=== PATIENT | female | born 1990 | race Caucasian/White ===

== ENCOUNTER → 2016-06-07 | Outpatient (CLI) | payer BC, OTHER ==
--- NOTE | 2016-06-07 16:39 | CT ---
EXAMINATION TYPE: CT sinus wo con DATE OF EXAM: 06/07/2016 4:28 PM COMPARISON: NONE HISTORY: HEADACHES AND DYSPHAGIA CT DLP: 673.7 mGycm CONTRAST: None The paranasal sinuses are examined in the axial plane at 2 mm thick sections. Reconstructed images i n the coronal plane were obtained. There is dental amalgam scatter artifact. The maxillary sinuses are clear. The ethmoid air cells are clear. The sphenoid sinuses are clear. The frontal sinuses are clear. The septum is evaluated. There is septal deviation to the right. Septal spur directed towards the ri ght is evident.. The ostiomeatal units are patent. There appear to be Anabel air cells present IMPRESSIONS: 1. Normal paranasal sinus study. 2. Right septal deviation.
--- NOTE | 2016-06-07 16:41 | CT ---
EXAMINATION TYPE: CT soft tissue neck w con DATE OF EXAM: 06/07/2016 4:29 PM COMPARISON: NONE HISTORY: HEADACHES AND DYSPHAGIA CT DLP: 266.10 mGycm CONTRAST: Patient injected with 100 mL of Omnipaque 300. TECHNIQUE: Axial images at 3 mm thick sections. Reconstructed images in the coronal plane and sagitt al plane are reviewed. FINDINGS: Limited CT sections are obtained the lung apices. The lung apices appear clear. Note is ma de of an azygos fissure, normal variant. CT neck: The torus tubarius and fossa of Rosenmuller are normal. Networking Technician spaces are normal. Para nasal sinuses and mastoid air cells are clear. Parotid glands appear normal and symmetrical. Submandibular glands, are normal. Parapharyngeal spac es are normal. No suspicious adenopathy is evident. The hypopharynx appears within normal limits. Vocal cord level appear symmetrical. Thyroid as visualized is normal. Osseous structures are normal. IMPRESSIONS: 1. Normal soft tissue neck.
== END | disposition home or self-care (01) ==
LOC: RADCTMAIN 16:01
PROVIDERS: ATTEND Otolaryngology
DX: J34.2 Deviated nasal septum (principal); R22.1 Localized swelling, mass and lump, neck
CPT/HCPCS: 70491; 70486; Q9967

== ENCOUNTER → 2016-06-08 | Outpatient (CLI) | payer BC, OTHER ==
--- NOTE | 2016-06-08 11:38 | FL ---
EXAMINATION TYPE: FL barium swallow w video DATE OF EXAM ORDERED: 06/08/2016 11:32 AM HISTORY: Globus sensation. COMPARISON: None. FINDINGS: The patient handled all foodstuffs with ease. There is no evidence of aspiration or penetr ation. There was no delay in swallowing. There is no residual. IMPRESSION: NORMAL MODIFIED BARIUM SWALLOW.
== END | disposition home or self-care (01) ==
LOC: RADFLMAIN 10:56
PROVIDERS: ATTEND Otolaryngology
DX: K21.9 Gastro-esophageal reflux disease without esophagitis (principal)
CPT/HCPCS: 74230

== ENCOUNTER 2016-12-26 09:46 | Emergency (ER) | payer BC, OTHER ==
[2016-12-26 10:40] LABS: Appearance,Urine Clear (Clear); Bilirubin,Urine Negative (Negative); Glucose,Urine (UA) Negative (Negative); Ketones,Urine Negative (Negative); Leukocyte Esterase,Urine Negative (Negative); Nitrite,Urine Negative (Negative); PH, Urine 5.5 (5.0-8.0); Protein,Urine Negative (Negative); Specific Gravity,Urine 1.014 (1.001-1.035); UA Billing (MACRO vs. MICRO) CHEM; Urobilinogen,Urine <2.0 mg/dL (<2.0)
[2016-12-26] MEDS ORDERED: RX INFO: IV CONTRAST WAS GIVEN 1 EACH MISC MISCELLANE PRN (10:44)
[2016-12-26] MEDS ORDERED: SODIUM CHLORIDE 0.9% 1,000 ML IV STA (10:44)
[2016-12-26] MEDS ORDERED: ACETAMINOPHEN IV (For NPO) 1,000 MG in EMPTY BAG 1 BAG IVPB STA (10:44)
[2016-12-26] MEDS ORDERED: ONDANSETRON 4 MG/2 ML VIAL IVP STA (10:44)
[2016-12-26] MEDS ORDERED: HYDROmorphone 1 MG/ML 1 ML SYRINGE IVP STA (10:44)
--- NOTE | 2016-12-26 10:57 | ED ---
General Adult HPI - General Chief complaint: Abdominal Pain Stated complaint: stomach/back pain/fever Time Seen by Provider: 12/26/16 10:27 Source: patient, RN notes reviewed, old records reviewed Mode of arrival: ambulatory Limitations: no limitations - History of Present Illness Initial comments: This is a 26-year-old female the ER for evaluation. Patient presents here today for evaluation regarding abdominal pain. Fever. Nausea. No appetite. Bowel movement yesterday no problem with urination although she states increased frequency. No chance of . Patient is right lower quadrant bowel pain with fever. Patient's R last night with progressive worsening. - Related Data Home Medications Medication Instructions Recorded Confirmed No Known Home Medications [No 12/26/16 12/26/16 Known Home Medications] Allergies Allergy/AdvReac Type Severity Reaction Status Date / Time coconut oil Allergy Anaphylaxis Verified 12/26/16 10:06 naproxen sodium Allergy Anaphylaxis Verified 12/26/16 10:06 [From Treximet] sumatriptan [From Imitrex] Allergy Anaphylaxis Verified 12/26/16 10:06 sumatriptan succinate Allergy Anaphylaxis Verified 12/26/16 10:06 [From Imitrex] cranberry AdvReac Rash/Hives Verified 12/26/16 10:06 Review of Systems ROS Statement: Those systems with pertinent positive or pertinent negative responses have been documented in the HPI. ROS Other: All systems not noted in ROS Statement are negative. Past Medical History Past Medical History: Seizure Disorder Additional Past Medical History / Comment(s): MIGRAINE, GESTATIONAL DIABETES. Obstetric history: First and second pregnancies were sponatneous abortions. Her third she had a vaginal delivery 8#1oz in 2012. THis is her fourth . She has had care with mo since 8 weeks gestation. A+, abs neg, Rub Imm, RPR NR, Hep B neg, neg quad, GBS neg. She has gestational diabetes but it has been diet controlled. History of Any Multi-Drug Resistant Organisms: None Reported Past Surgical History: Orthopedic Surgery Additional Past Surgical History / Comment(s): [place] teeth removed Past Anesthesia/Blood Transfusion Reactions: No Reported Reaction Past Psychological History: No Psychological Hx Reported Smoking Status: Never smoker Past Alcohol Use History: None Reported Past Drug Use History: None Reported - Past Family History Mother Additional Family Medical History / Comment(s): abdominal aortic aneurysm General Exam Limitations: no limitations General appearance: alert, in no apparent distress Head exam: Present: atraumatic, normocephalic, normal inspection Eye exam: Present: normal appearance, PERRL, EOMI. Absent: scleral icterus, conjunctival injection, periorbital swelling ENT exam: Present: normal exam, mucous membranes moist Neck exam: Present: normal inspection. Absent: tenderness, meningismus, lymphadenopathy Respiratory exam: Present: normal lung sounds bilaterally. Absent: respiratory distress, wheezes, rales, rhonchi, stridor Cardiovascular Exam: Present: regular rate, normal rhythm, normal heart sounds. Absent: systolic murmur, diastolic murmur, rubs, gallop, clicks GI/Abdominal exam: Present: soft, normal bowel sounds. Absent: distended, tenderness, guarding, rebound, rigid Extremities exam: Present: normal inspection, full ROM, normal capillary refill. Absent: tenderness, pedal edema, joint swelling, calf tenderness Back exam: Present: normal inspection Neurological exam: Present: alert, oriented X3, CN II-XII intact Psychiatric exam: Present: normal affect, normal mood Skin exam: Present: warm, dry, intact, normal color. Absent: rash Course Vital Signs 12/26/16 09:47 Temperature 100.2 F H Pulse Rate 86 Respiratory 20 Rate Blood Pressure 120/62 O2 Sat by Pulse 100 Oximetry - Reevaluation(s) Reevaluation #1: 12/26/16 13:15 Pain is well-controlled this point, patient's questions are answered Medical Decision Making - Medical Decision Making 20 Beatriz Venkat of suprapubic abdominal pain and right-sided flank pain and right-sided ultrasound ovarian cyst, no torsion, CT and pelvis is negative. Lipase is normal urine is negative patient can be discharged home - Lab Data Result diagrams: 12/26/16 11:03 12/26/16 11:03 Lab Results 12/26/16 12/26/16 12/26/16 Range/Units 10:20 10:20 11:03 WBC (3.8-10.6) k/uL RBC (3.80-5.40) m/uL Hgb (11.4-16.0) gm/dL Hct (34.0-46.0) % MCV (80.0-100.0) fL MCH (25.0-35.0) pg MCHC (31.0-37.0) g/dL RDW (11.5-15.5) % Plt Count (150-450) k/uL Neutrophils % % Lymphocytes % % Monocytes % % Eosinophils % % Basophils % % Neutrophils # (1.3-7.7) k/uL Lymphocytes # (1.0-4.8) k/uL Monocytes # (0-1.0) k/uL Eosinophils # (0-0.7) k/uL Basophils # (0-0.2) k/uL Sodium 138 (137-145) mmol/L Potassium 4.3 (3.5-5.1) mmol/L Chloride 105 (98-107) mmol/L Carbon Dioxide 25 (22-30) mmol/L Anion Gap 8 mmol/L BUN 14 (7-17) mg/dL Creatinine 0.59 (0.52-1.04) mg/dL Est GFR (MDRD) Af Amer >60 (>60 ml/min/1.73 sqM) Est GFR (MDRD) Non-Af >60 (>60 ml/min/1.73 sqM) Glucose 84 (74-99) mg/dL Calcium 8.6 (8.4-10.2) mg/dL Total Bilirubin 0.4 (0.2-1.3) mg/dL AST 16 (14-36) U/L ALT 26 (9-52) U/L Alkaline Phosphatase 47 (38-126) U/L Total Protein 6.9 (6.3-8.2) g/dL Albumin 4.1 (3.5-5.0) g/dL Amylase 33 (30-110) U/L Lipase 82 (23-300) U/L Urine Color Light Yellow Urine Appearance Clear (Clear) Urine pH 5.5 (5.0-8.0) Ur Specific [place] 1.014 (1.001-1.035) Urine Protein Negative (Negative) Urine Glucose (UA) Negative (Negative) Urine Ketones Negative (Negative) Urine Blood Negative (Negative) Urine Nitrite Negative (Negative) Urine Bilirubin Negative (Negative) Urine Urobilinogen <2.0 (<2.0) mg/dL Ur Leukocyte Esterase Negative (Negative) Urine HCG, Qual Not Detected (Not Detectd) 12/26/16 Range/Units 11:03 WBC 6.1 (3.8-10.6) k/uL RBC 4.21 (3.80-5.40) m/uL Hgb 12.0 (11.4-16.0) gm/dL Hct 35.0 (34.0-46.0) % MCV 83.3 (80.0-100.0) fL MCH 28.6 (25.0-35.0) pg MCHC 34.3 (31.0-37.0) g/dL RDW 12.9 (11.5-15.5) % Plt Count 218 (150-450) k/uL Neutrophils % 77 % Lymphocytes % 17 % Monocytes % 4 % Eosinophils % 1 % Basophils % 0 % Neutrophils # 4.7 (1.3-7.7) k/uL Lymphocytes # 1.0 (1.0-4.8) k/uL Monocytes # 0.2 (0-1.0) k/uL Eosinophils # 0.0 (0-0.7) k/uL Basophils # 0.0 (0-0.2) k/uL Sodium (137-145) mmol/L Potassium (3.5-5.1) mmol/L Chloride (98-107) mmol/L Carbon Dioxide (22-30) mmol/L Anion Gap mmol/L BUN (7-17) mg/dL Creatinine (0.52-1.04) mg/dL Est GFR (MDRD) Af Amer (>60 ml/min/1.73 sqM) Est GFR (MDRD) Non-Af (>60 ml/min/1.73 sqM) Glucose (74-99) mg/dL Calcium (8.4-10.2) mg/dL Total Bilirubin (0.2-1.3) mg/dL AST (14-36) U/L ALT (9-52) U/L Alkaline Phosphatase (38-126) U/L Total Protein (6.3-8.2) g/dL Albumin (3.5-5.0) g/dL Amylase (30-110) U/L Lipase (23-300) U/L Urine Color Urine Appearance (Clear) Urine pH (5.0-8.0) Ur Specific [place] (1.001-1.035) Urine Protein (Negative) Urine Glucose (UA) (Negative) Urine Ketones (Negative) Urine Blood (Negative) Urine Nitrite (Negative) Urine Bilirubin (Negative) Urine Urobilinogen (<2.0) mg/dL Ur Leukocyte Esterase (Negative) Urine HCG, Qual (Not Detectd) - Radiology Data Radiology results: report reviewed (CT pelvis negative, ultrasound is POSITIVE FOR OVARIAN CYST NO TORSION), image reviewed Disposition Clinical Impression: Abdominal pain, Ovarian cyst Disposition: HOME SELF-CARE Condition: Good Instructions: Ovarian Cyst (ED) Referrals: Sunday Saavedra MD [Primary Care Provider] - 1-2 days
[2016-12-26 11:18] LABS: Basophils % (A) 0 %; CHCM 33.8; Eosinophils % (A) 1 %; Luc # (Auto) 0.08; Luc % (Auto) 1; Lymphocytes % (A) 17 %; MCH 28.6 pg (25.0-35.0); MCHC 34.3 g/dL (31.0-37.0); MCV 83.3 fL (80.0-100.0); Monocytes # (A) 0.2 k/uL (0-1.0); Monocytes % (A) 4 %; Neutrophils # (A) 4.7 k/uL (1.3-7.7); Neutrophils % (A) 77 %; RBC 4.21 m/uL (3.80-5.40); RDW 12.9 % (11.5-15.5); WBC 6.1 k/uL (3.8-10.6); WBC (Perox) 6.05
[2016-12-26 11:24] LABS: ALT 26 U/L (9-52); AST 16 U/L (14-36); Alkaline Phosphatase 47 U/L (38-126); Amylase 33 U/L (30-110); Anion Gap 8 mmol/L; Blood Urea Nitrogen 14 mg/dL (7-17); Calcium 8.6 mg/dL (8.4-10.2); Carbon Dioxide 25 mmol/L (22-30); Chloride 105 mmol/L (98-107); Glucose 84 mg/dL (74-99); Non-African American GFR(MDRD) >60 (>60 ml/min/1.73 sqM); Potassium 4.3 mmol/L (3.5-5.1); Sodium 138 mmol/L (137-145); Total Bilirubin 0.4 mg/dL (0.2-1.3); Total Protein 6.9 g/dL (6.3-8.2)
[2016-12-26] MEDS ORDERED: diphenhydrAMINE 50 MG/ML 1 ML VIAL IVP STA (11:46)
[2016-12-26] MEDS ORDERED: METOCLOPRAMIDE 5 MG/ML 2 ML VIAL IVP STA (11:46)
--- NOTE | 2016-12-26 11:53 | CT ---
EXAMINATION TYPE: CT abdomen pelvis w con DATE OF EXAM: 12/26/2016 HISTORY: RLQ pain with fever since last night. CT DLP: 508.6mGycm Automated Exposure Control for Dose Reduction was Utilized. CONTRAST: CT scan of the abdomen and pelvis is performed without oral but with IV Contrast, patient injected wi th 100 mL of Omnipaque 300. COMPARISON: None. FINDINGS: LUNG BASES: No significant abnormality is appreciated. LIVER/GB: No significant abnormality is appreciated. PANCREAS: No significant abnormality is seen. SPLEEN: No significant abnormality is seen. ADRENALS: No significant abnormality is seen. KIDNEYS: No significant abnormality is seen. BOWEL: No suspicious small or large bowel dilatation is seen. UTERUS/ADNEXA: Uterus is slightly retroverted in shape but normal in size. There is central linear de nsity with streak artifact corresponding to metallic IUD likely satisfactory in position. Both ovarie s are present, right is slightly larger than left. Within right ovary there is 2.4 cm rim hyperdense hypoechoic lesion could reflect prominent follicle or simple small ovarian cyst on axial image 67. Sm all amount of free fluid is seen in left pelvic cul-de-sac on axial image 67. Appendix is visualized best on axial images 58 through 62 measuring up to 5 to 6 mm in diameter. No surrounding inflammatory changes seen. Appendix is also seen on coronal images 29 through 34. LYMPH NODES: No greater than 1cm abdominal or pelvic lymph nodes are appreciated. OSSEOUS STRUCTURES: Some subchondral cystic change is seen in right aspect of pubic symphysis. OTHER: No significant additional abnormality is seen. IMPRESSION: No CT evidence for acute appendicitis. No bowel obstruction is noted. No suspicious findi ng is seen to account for patient's symptoms of fever and pain.
--- NOTE | 2016-12-26 13:16 | US ---
EXAMINATION TYPE: US transvaginal DATE OF EXAM: 12/26/2016 COMPARISON: CLINICAL HISTORY: torsion. IUD inserted April of this month. RLQ pain TECHNIQUE: Transvaginal (TV) Date of LMP: 12/03/2016, EXAM MEASUREMENTS: Uterus: 8.4 x 5.3 x 4.7 cm Endometrial Stripe: 1.2 cm Right Ovary: 4.3 x 2.3 x 2.8 cm Left Ovary: 3.8 x 2.3 x 2.4 cm 1. Uterus: Anteverted wnl 2. Endometrium: IUD seen within endometrial canal 3. Right Ovary: Complex lesion seen with peripheral vascular flow = 2.4 x 2.5 x 2.8 cm. Follicles se en. 4. Left Ovary: Hypoechoic lesion with peripheral vascular flow = 1.3 x 1.0 x 1.0 cm Spectral, color and waveform doppler imaging shows good arterial and venous flow within the ovaries ; there is no current evidence for ovarian torsion. 5. Bilateral Adnexa: free fluid seen adjacent to LO 6. Posterior cul-de-sac: free fluid IMPRESSION: 1. Vascular flow is seen to both ovaries and there is no current evidence of ovarian torsion at the t evans of the examination. 2. Complex dominant follicle measuring size criteria for a cyst is seen on the right measuring up to 2.8 cm. This is of heterogenous echotexture and may relate to a large hemorrhagic ovarian follicle. F ollow-up in 2-3 menstrual cycles is recommended to evaluate for resolution. 3. Midline IUD within the endometrial canal spanning the body and fundus.
[2016-12-26 13:42] VITALS: BP 140/70; PULSE 88; RESP 16; TEMP 99
== END 2016-12-26 13:39 | disposition home or self-care (01) ==
LOC: EC 09:46
DX: N83.201 Unspecified ovarian cyst, right side (principal); Z88.6 Allergy status to analgesic agent; Z88.8 Allergy status to other drugs, medicaments and biological substances; Z91.018 Allergy to other foods; Z91.048 Other nonmedicinal substance allergy status; Z97.5 Presence of (intrauterine) contraceptive device
CPT/HCPCS: 36415; 80053; 82150; 83690; 85025; 81003; 81025; 93975; 76830; 74177; 99284; 96374; 96375 ×3; 96361; J1200; J2765; J2405; J1170; J0131

== ENCOUNTER 2018-06-04 11:30 | Outpatient (CLI) | payer OTHER ==
[2018-06-04 12:18] VITALS: BP 119/57; PULSE 81; RESP 16; TEMP 97.5
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
== END 2018-06-04 12:10 | disposition home or self-care (01) ==
LOC: FBPOP 11:30
PROVIDERS: ATTEND Obstetrics & Gynecology
DX: O99.89 Other specified diseases and conditions complicating pregnancy, childbirth and the puerperium (principal); G89.11 Acute pain due to trauma; Z3A.21 21 weeks gestation of pregnancy
CPT/HCPCS: 99213

== ENCOUNTER 2018-08-25 09:03 | Outpatient (CLI) | payer OTHER ==
[2018-08-25 09:33] VITALS: BP 113/65; PULSE 100; RESP 16; TEMP 98.5
[2018-08-25 11:35] LABS: Basophils % (A) 0 %; Eosinophils % (A) 0 %; HCT 29.4 % (34.0-46.0); HGB 9.7 gm/dL (11.4-16.0); Lymphocytes # (A) 0.5 k/uL (1.0-4.8); Lymphocytes % (A) 7 %; MCH 27.4 pg (25.0-35.0); MCHC 32.9 g/dL (31.0-37.0); MCV 83.3 fL (80.0-100.0); Mean Platelet Volume 8.5; Monocytes # (A) 0.2 k/uL (0-1.0); Monocytes % (A) 3 %; Neutrophils # (A) 6.4 k/uL (1.3-7.7); Neutrophils % (A) 89 %; Platelet Count 208 k/uL (150-450); RBC 3.53 m/uL (3.80-5.40); RDW 15.1 % (11.5-15.5); WBC 7.2 k/uL (3.8-10.6)
[2018-08-25 11:38] LABS: Uric Acid 4.1 mg/dL (3.7-7.4)
--- NOTE | 2018-08-25 11:54 | US ---
EXAMINATION TYPE: US gallbladder DATE OF EXAM: 08/25/2018 COMPARISON: CT 2017 CLINICAL HISTORY: pt c/o upper gastric pain. pt 32 weeks . Epigastric pain x 1 day. Patient i s 32 weeks . EXAM MEASUREMENTS: Liver Length: 15.9 cm Gallbladder Wall: 0.26 cm CBD: 0.36 cm Right Kidney: 11.8 x6.2 x 4.8 cm *Limited due to gas. Pancreas: Partially obscured by gas. Liver: appears wnl Gallbladder: Echoes seen within the gallbladder. ?Artifact vs suggestive of sludge. Length: 8.4 cm. Evidence for sonographic Mae's sign: No CBD: wnl Right Kidney: No hydronephrosis or masses seen. Images slightly limited due to gas and rib shadow. Portal vein measures 16 mm. IMPRESSION: 1. Internal echoes within the gallbladder may represent gallbladder sludge with no definite stones or wall thickening. Common bile duct measures normal. 2. No obvious right-sided hydronephrosis.
--- NOTE | 2018-08-28 06:58 | P.MSEPDOC ---
Presenting Problems - Arrival Data Date of Arrival on Unit: 08/25/18 Time of Arrival on Unit: 09:13 Mode of Transport: Portable - Complaint OB-Reason for Admission/Chief Complaint: Other Comment: pt arrived c/o epigastric pain lower abd cramoing headache and back pain Medical History - Information : 6 Para: 3 Term: 3 : 0 Abortions: Spontaneous or Elective: 2 Number of Living Children: 3 - Gestational Age Gestational Age by DANIAL (wks/days): 32 Weeks and 6 Days - History Complications: GDM Review of Systems - Review of Systems Constitutional: Fatigue Breast: No problems ENT: No problems Cardiovascular: No problems Respiratory: No problems Gastrointestinal: No problems Genitourinary: No problems Musculoskeletal: No problems Neurological: Dizziness Skin: No problems Vital Signs - Temperature Temperature: 98.5 F Temperature Source: Oral - Pulse Right Brachial Pulse Rate: 100 Pulse Assessment Method: Automatic Cuff - Respirations Respiratory Rate: 16 Oxygen Delivery Method: Room Air O2 Sat by Pulse Oximetry: 99 - Blood Pressure Right Arm Blood Pressure: 113/65 Blood Pressure Mean: 81 Blood Pressure Source: Automatic Cuff Medical Screen Scoring (Pre) - Cervical Exam Dilation: Exam Deferred Effacement: Exam Deferred Membranes: Intact - Uterine Contractions Frequency: N/A Duration: N/A Intensity: Contraction palpated strong = 1 - Maternal Vital Signs Maternal Temperature: N/A Maternal Blood Pressure: N/A Signs of Preeclampsia: Headache = 1, Nausea/Vomiting = 1, Epigastric Pain = 1 Maternal Respirations: N/A - Pain Assessment Pain Location and Character: Chest, Back Pain Scale Used: Numeric (1 - 10) Pain Intensity: 9 Pain Management Goal: 2 Pain Description: Sharp Pain Radiation Location: n/a Pain Frequency: Intermittent Pain Duration: 1 Pain Duration Units: Minutes Pain Behavior: Vocalization Pain Aggravating Factors: Chewing, Swallowing Non-Pharmacological Interventions: Relaxation Technique - Maternal Trauma Maternal Trauma: N/A - Total Score Total Score (Pre): 4 Medical Screen Scoring (Post) - Assessment Heart Rate: 150 Heart Rate - NICHD Category: Category I (Normal) = 0 NST: Reactive Position: N/A Station: N/A - Total Score Total Score (Post): 0 - Post Treatment Level of Risk Post Treatment Level of Risk: Low (0-5) Physician Notification (Post) - Physician Notified Physician Notified Date: 08/25/18 Physician Notified Time: 12:20 Spoke With: dr montana New Order Received: Yes - Notification Comment Comment: labs reviewd and u/s reviewed per dr montana. may discharge to homewith instructions Disposition - Disposition OB Disposition: Physician follow up in office, Discharge to home Discharge Date: 08/25/18 Discharge Time: 12:30 I agree with the RN Medical Screening Exam: Yes Risk & Benefit of care provided described in d/c instruction: Yes Diagnosis: UNSPECIFIED ABDOMINAL PAIN
== END 2018-08-25 12:30 | disposition home or self-care (01) ==
LOC: FBPOP 09:03
PROVIDERS: ATTEND Obstetrics & Gynecology
DX: O26.893 Other specified pregnancy related conditions, third trimester (principal); R10.9 Unspecified abdominal pain; Z3A.32 32 weeks gestation of pregnancy
CPT/HCPCS: 59025; 84450; 84460; 84520; 84550; 85025; 76705; G0463; 99213

== ENCOUNTER 2018-10-07 06:00 | Inpatient (IN) | payer OTHER ==
[2018-10-09] MEDS ORDERED: OXYTOCIN 10 UNIT/ML 1 ML VIAL IM PRN (06:20)
[2018-10-09] MEDS ORDERED: LIDOCAINE 0.5% (PF) 5 MG/ML (50 ML SDV) SQ PRN (06:20)
[2018-10-09] MEDS ORDERED: METHYLERGONOVINE 0.2 MG/ML 1 ML AMP IM PRN (06:20)
[2018-10-09] MEDS ORDERED: CARBOPROST TROMETHAMINE 250 MCG/ML 1 ML AMP IM PRN (06:20)
[2018-10-09] MEDS ORDERED: PENICILLIN G POTASSIUM 5,000,000 UNIT in DEXTROSE 5% IN WATER 100 ML IVPB STA ×2 (06:20)
[2018-10-09] MEDS ORDERED: TERBUTALINE 1 MG/ML VIAL SQ PRN (06:20)
[2018-10-09 06:28] VITALS: BMI 30.9
[2018-10-09] MEDS ORDERED: LACTATED RINGERS 1,000 ML IV SCH (06:30)
[2018-10-09] MEDS ORDERED: OXYTOCIN 30 UNITS/500 ML NS 30 UNIT in SALINE 1 500ML.BAG IV SCH (06:30)
[2018-10-09 06:33] LABS: Glucose,Whole Blood 97 mg/dL (75-99)
[2018-10-09] MEDS: LACTATED RINGERS 1,000 ML IV SCH ×2 (06:33→10:13)
[2018-10-09 06:45] LABS: Anisocytosis Slight; Basophils % (A) 0 %; Eosinophils % (A) 1 %; HCT 27.2 % (34.0-46.0); Hypochromasia Moderate; Lymphocytes % (A) 27 %; MCH 25.8 pg (25.0-35.0); Mean Platelet Volume 9.1; Monocytes # (A) 0.3 k/uL (0-1.0); Monocytes % (A) 4 %; Neutrophils # (A) 4.8 k/uL (1.3-7.7); Neutrophils % (A) 66 %; Platelet Count 228 k/uL (150-450); Poikilocytosis Slight; RBC 3.47 m/uL (3.80-5.40); RDW 16.2 % (11.5-15.5); WBC 7.3 k/uL (3.8-10.6)
[2018-10-09 06:58] LABS: MCV 78.2 fL (80.0-100.0)
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
[2018-10-09] MEDS ORDERED: PENICILLIN G POTASSIUM 2,500,000 UNIT in DEXTROSE 5% IN WATER 100 ML IVPB SCH ×2 (10:30)
[2018-10-09] MEDS ORDERED: ROPIVACAINE 100 MG, fentaNYL (PF) 200 MCG in SODIUM CHLORIDE 0.9% 76 ML EPIDURAL ONE (10:48)
[2018-10-09] MEDS ORDERED: WITCH HAZEL 1 EACH MED..PAD TOPICAL PRN (12:53)
[2018-10-09] MEDS ORDERED: BENZOCAINE/MENTHOL SPRAY 1 GM/SPRAY AEROSOL TOPICAL PRN (12:53)
[2018-10-09] MEDS ORDERED: HYDROCORTISONE 2.5% RECTAL CREAM 30 GM TUBE RECTAL PRN (12:53)
[2018-10-09] MEDS ORDERED: LANOLIN CREAM 5 GM TUBE TOPICAL PRN (12:53)
[2018-10-09] MEDS ORDERED: SIMETHICONE 80 MG CHEWABLE PO PRN (12:53)
[2018-10-09] MEDS ORDERED: diphenhydrAMINE 50 MG/ML 1 ML VIAL IVP PRN ×2 (12:53)
[2018-10-09] MEDS ORDERED: ZOLPIDEM 5 MG TAB PO PRN (12:53)
[2018-10-09] MEDS ORDERED: diphenhydrAMINE 25 MG CAP PO PRN (12:53)
[2018-10-09] MEDS ORDERED: diphenhydrAMINE 50 MG CAP PO PRN (12:53)
--- NOTE | 2018-10-09 12:53 | P.PROBDLV ---
Vaginal Delivery Note - . Vaginal Delivery Note: This is a 28-year-old white female 6 para 3013 EDC 10/14/2018 at 39-2/7 weeks' gestation. Patient presented for induction with favorable multiparous cervix. Group B strep cultures positive. Rubella status immune. Admitting blood sugar 97.. Please see my dictated history and physical for details. Artificial amniorrhexis revealed clear fluid. Oxytocin was started and titrated per hospital protocol. Patient did receive 2 doses of penicillin prophylactic ally. Epidural was placed per her request. She progressed well through the first stage of labor was judged be completely dilated at 1227 hrs. Perineal body was prepped and draped in usual sterile fashion. With excellent maternal expulsive efforts the head delivered occiput anterior and restituted accordingly. There was a nuchal cord 1 that was reduced. The left or anterior shoulder was gently and easily delivered from underneath the pubic symphysis at which time the oropharynx, nasopharynx, and external nares were bulb suctioned on the perineal body. Patient was officially delivered a liveborn male infant at 1241 hours. Umbilical cord was doubly clamped and ligated, he was handed to waiting nurses for evaluation where scores of 9 and 9 at one and 5 minutes respectively were given. The center delivered spontaneously, it was inspected and noted to be intact with trivascular cord at 1244 hours. At this time the uterus is massaged. Inspection of the cervix, vagina, perine um, periurethral, and perirectal areas revealed no lacerations and no defects. Total estimated blood loss 250 mL's. Infant weighed 4295 g or 9 lbs. 7 oz. They are requesting circumcision further infant son. care was instituted.
[2018-10-09] MEDS ORDERED: OXYTOCIN 20 UNITS/1000 ML NS 1,000 ML IV SCH (13:00)
[2018-10-09] MEDS: IBUPROFEN 600 MG TAB PO PRN ×2 (13:07→20:08)
[2018-10-09] MEDS: ACETAMINOPHEN TAB 325 MG TAB PO PRN (15:50)
[2018-10-09] MEDS ORDERED: SENNOSIDES-DOCUSATE SODIUM 1 EACH TAB PO SCH (20:00)
[2018-10-10] MEDS: ACETAMINOPHEN TAB 325 MG TAB PO PRN ×3 (00:04→11:32)
[2018-10-10] MEDS: IBUPROFEN 600 MG TAB PO PRN ×2 (01:57→15:25)
--- NOTE | 2018-10-10 08:05 | P.DS ---
Providers Date of admission: 10/09/18 06:10 Expected date of discharge: 10/10/18 Attending physician: Nancy Bill Primary care physician: [facility] Course: This is a 28-year-old white female 6 para 3023 EDC 10/14/2018 at 39-2/7 weeks' gestation. Patient presented for induction of labor with favorable multiparous cervix. history was unremarkable, group B strep cultures positive, rubella status immune, blood type A positive. Please see dictated history and physical for details. Penicillin G was given 2 doses. Oxytocin was started and titrated. Admitting blood sugar 97. Epidural was placed per her request. She went on to deliver vaginally a liveborn male with scores of 9 and 9 at one and 5 minutes respectively. weighed 9 lbs. 7 oz. or 4295 g. There was an estimated blood loss recorded of 250 mL's. There was a nuchal cord 1 that was reduced on the perineal body. Please see dictated delivery note for details. This morning the patient is doing well. She is voiding, ambulating and passing flatus without difficulty. Vital signs are stable and she is afebrile. Fundus is firm and in the midline, symmetric and 18 week size. Extremities are negative for edema. [place] infant is doing well, circumcision has been performed. Patient is judged to be in very good condition for discharge home. She will follow-up with me in the office in 6 weeks. I have reminded her no intercourse, tampons or douching. She will use [id number] Advil or Aleve, or ibuprofen as needed for pain. She will call with any fevers shakes or chills, foul smelling or copious lochia, with the passage of large blood clots, or indeed with any concerns. We have reviewed contraceptive options and we will discuss this further in the office. Patient Condition at Discharge: Good Plan - Discharge Summary Discharge Rx Participant: No New Discharge Prescriptions: No Action Hry-Fnca-[id number] Acid [-U Capsule (formulary)] 1 tab PO DAILY Ferrous Gluconate [Iron] 1 tab PO ONCE Discharge Medication List Vop-[id number]-[id number] Acid [-U Capsule (formulary)] 1 tab PO DAILY 07/29/18 [History] Ferrous Gluconate [Iron] 1 tab PO ONCE 10/09/18 [History] Follow up Appointment(s)/Referral(s): Nancy Bill MD [STAFF PHYSICIAN] - 6 Weeks Discharge Disposition: HOME SELF-CARE
[2018-10-10 17:20] VITALS: RESP 16
[2018-10-10 17:22] VITALS: BP 117/71; PULSE 82; TEMP 97.8
== END 2018-10-10 16:00 | disposition home or self-care (01) | DRG 806 ==
LOC: 4FBP 10-09 06:10
PROVIDERS: ADMIT Obstetrics & Gynecology; ATTEND Obstetrics & Gynecology
PROC: 10E0XZZ Delivery of Products of Conception, External Approach (ICD-10-PCS; principal; 2018-10-09)
PROC: 00HU33Z Insertion of Infusion Device into Spinal Canal, Percutaneous Approach (ICD-10-PCS; 2018-10-09)
PROC: 3E0R3BZ Introduction of Anesthetic Agent into Spinal Canal, Percutaneous Approach (ICD-10-PCS; 2018-10-09)
PROC: 10907ZC Drainage of Amniotic Fluid, Therapeutic from Products of Conception, Via Natural or Artificial Opening (ICD-10-PCS; 2018-10-09)
PROC: 3E033VJ Introduction of Other Hormone into Peripheral Vein, Percutaneous Approach (ICD-10-PCS; 2018-10-09)
DX: O69.81X0 Labor and delivery complicated by cord around neck, without compression, not applicable or unspecified (principal); O99.354 Diseases of the nervous system complicating childbirth; Z37.0 Single live birth; O24.420 Gestational diabetes mellitus in childbirth, diet controlled; G40.909 Epilepsy, unspecified, not intractable, without status epilepticus; G43.909 Migraine, unspecified, not intractable, without status migrainosus; O99.824 Streptococcus B carrier state complicating childbirth; Z3A.39 39 weeks gestation of pregnancy; Z88.8 Allergy status to other drugs, medicaments and biological substances; Z91.018 Allergy to other foods; Z83.3 Family history of diabetes mellitus; Z82.49 Family history of ischemic heart disease and other diseases of the circulatory system
CPT/HCPCS: 85025; 86850; 86900; 86901

== ENCOUNTER → 2021-10-25 | Outpatient (CLI) | payer OTHER ==
--- NOTE | 2021-10-25 22:13 | MR ---
EXAMINATION TYPE: MR lumbar spine wo con DATE OF EXAM: 10/25/2021 COMPARISON: CT abdomen and pelvis December 26, 2016 HISTORY: Low back pain that radiates down legs to feet causing numbness. TECHNIQUE: Multiplanar, multisequence imaging of the lumbar spine is performed without IV contrast. FINDINGS: Sagittal images of the lumbar spine show vertebral body heights and alignment to appear sat isfactory. Disc desiccation with mild disc space narrowing L4-L5 level. Disc desiccation L5-S1 level. The conus medullaris is normal in position and signal ending mid L1 level. The bone marrow signal intensity is within normal limits. Axial images show T12-L1, L1-L2, L2-L3, and L3-L4 levels all to appear within normal limits. Axial images at L4-L5 level shows central disc protrusion mildly effaces the anterior thecal sac with posterior annular tear. Patent bilateral neural foramina. Axial images at L5-S1 level shows central disc protrusion with annular tear but the spinal canal is p reserved. Bilateral neural foramina are patent. Paraspinal muscle bulk is maintained. IMPRESSION: Degenerative changes in the lower lumbar spine as detailed above. No significant nerve ef facement identified.
== END | disposition home or self-care (01) ==
LOC: RADMRIMAIN 21:35
PROVIDERS: ATTEND Family Medicine
DX: M51.16 Intervertebral disc disorders with radiculopathy, lumbar region (principal); M47.26 Other spondylosis with radiculopathy, lumbar region
CPT/HCPCS: 72148

== ENCOUNTER → 2022-05-29 | Outpatient (CLI) | payer OTHER, BC ==
--- NOTE | 2022-05-29 13:40 | USB ---
Reason for Exam: Clinical finding. Technique: Method: Whole Breast Handheld. Findings: The whole breast of both breasts, the axilla of both breasts and the retroareolar of both breasts were scanned. Electronically signed and approved by: Henok Reed DO
== END | disposition home or self-care (01) ==
LOC: RADUSWWP 12:52
PROVIDERS: ATTEND Obstetrics & Gynecology
DX: N63.20 Unspecified lump in the left breast, unspecified quadrant (principal); N64.4 Mastodynia

== ENCOUNTER → 2022-07-24 | Outpatient (CLI) | payer BC, OTHER ==
--- NOTE | 2022-07-24 09:09 | CT ---
EXAMINATION TYPE: CT sinus wo con DATE OF EXAM: 07/24/2022 COMPARISON: none HISTORY: headache CT DLP: [address] of the paranasal sinuses was performed in the axial and coronal planes. Bone and soft tissue settings are submitted. The paranasal sinuses demonstrate normal aeration and development. The paranasal sinuses are free of air fluid level. Mucosal thickening of a few scattered ethmoid air cells. The osteal meatal units are patent bilaterally. The nasal septum is deviated from left to right. No bony destructive changes are seen within the field of view. IMPRESSION: Mild ethmoidal chronic sinusitis. Nasal septal deviation from left to right.
== END | disposition home or self-care (01) ==
LOC: RADCTMAIN 08:39
PROVIDERS: ATTEND Otolaryngology Facial Plastic Surgery
DX: J32.2 Chronic ethmoidal sinusitis (principal); J34.2 Deviated nasal septum
CPT/HCPCS: 70486

== ENCOUNTER → 2023-11-06 | Outpatient (CLI) | payer BC, OTHER ==
--- NOTE | 2023-11-06 12:11 | XR ---
EXAMINATION TYPE: XR chest 2V DATE OF EXAM: 11/06/2023 11:41 AM CLINICAL INDICATION:Female, 33 years old with history of COUGH [id number]; H COMPARISON: None TECHNIQUE: XR chest 2V Frontal view of the chest. FINDINGS: Lungs/Pleura: There is no evidence of pleural effusion, focal consolidation, or pneumothorax. Pulmonary vascularity: Unremarkable. Heart/mediastinum: Cardiomediastinal silhouette is unremarkable. Musculoskeletal: No acute osseous pathology. Other findings: None IMPRESSION: No acute cardiopulmonary disease/process.
== END | disposition home or self-care (01) ==
LOC: RADXRMAIN 11:28
PROVIDERS: ATTEND Family Medicine
DX: R05.9 Cough, unspecified (principal)
CPT/HCPCS: 71046